=== PATIENT | female | born 1965 | race Caucasian/White ===

== ENCOUNTER → 2017-06-08 09:07 | Outpatient (CLI) | payer OTHER | END | disposition home or self-care (01) | LOC: D.RAD 09:07 | DX: R13.12 Dysphagia, oropharyngeal phase (principal); R13.19 Other dysphagia ==

== ENCOUNTER → 2017-06-13 12:40 | Outpatient (CLI) | payer OTHER | END | disposition home or self-care (01) | LOC: D.RAD 12:40 | DX: R13.12 Dysphagia, oropharyngeal phase (principal); R13.19 Other dysphagia ==